=== PATIENT | male | born 1985 | race Caucasian/White ===

== ENCOUNTER 2019-09-10 14:50 | Outpatient (CLI) | payer BC, SELFPAY ==
--- NOTE | ~2019-09-10 | XR_ITS ---
XR knee RT 3V DATE: 09/10/2019 15:15 INDICATION: Right knee pain anteriorly. TECHNIQUE: 3 views COMPARISON: None FINDINGS: No fracture or dislocation or joint effusion. Joint spaces are preserved. No radiopaque int ra-articular loose body or chondrocalcinosis. IMPRESSION: Negative Reviewed, dictated and finalized at location A. IMPRESSION: Negative
--- NOTE | ~2019-09-10 | XR_ITS ---
XR knee LT 3V DATE: 09/10/2019 15:16 INDICATION: Anterior knee pain. No known injury. TECHNIQUE: 3 views COMPARISON: None FINDINGS: No fracture or dislocation or joint effusion, periosteal reaction or bone destruction, radi opaque intra-articular loose body or chondrocalcinosis. Joint spaces are well preserved. IMPRESSION: Negative Reviewed, dictated and finalized at location A. IMPRESSION: Negative
== END 2019-09-10 14:51 | disposition home or self-care (01) ==
PROVIDERS: PCP Family Medicine; Visit Provider Physician Assistant
DX: M25.561 Pain in right knee (principal); M25.562 Pain in left knee
CPT/HCPCS: 73562

== ENCOUNTER 2020-03-13 07:01 | Outpatient (CLI) | payer BC, SELFPAY ==
--- NOTE | 2020-03-13 10:36 | P.NEURO_ITS ---
Neurology EEG Report General Information Date of Study: 03/13/20 TEST EEG DIAGNOSIS seizures CONDITION OF RECORDING awake drowsy and sleep EEG NUMBER [id number] CLINICAL HISTORY patient reported he was diagnosed with absence seizure about 16 years ago. Has been of seizure medication for the last several years. Has noted a couple of episodes of losing time in the last couple of months. EEG DESCRIPTION Basic resting occipital frequency consists of small amount of poorly organized low voltage 11 to 13 hertz per second alpha admixed with large amount of low- voltage 15 to 21 hertz per second beta. During drowsiness low-voltage beta activity seen diffusely. Bilateral symmetrical sleep activity seen during sleep. Multiple EKG artifacts are noted throughout the tracing. Non paroxysmal. Nonfocal. Nonlateralizing. IMPRESSION No significant abnormalities noted
== END 2020-03-13 07:02 | disposition home or self-care (01) ==
PROVIDERS: PCP Family Medicine; Visit Provider Psychiatry & Neurology Neurology
DX: G40.909 Epilepsy, unspecified, not intractable, without status epilepticus (principal)
CPT/HCPCS: 95819

== ENCOUNTER 2022-01-10 01:32 | Day surgery (SDC) | payer BC, MEDICARE, SELFPAY ==
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
[2022-01-08 10:11] VITALS: BMI 20.3
--- NOTE | 2022-01-08 10:17 | PC.NURSE ---
Report to the Outpatient Waiting Room, entrance under the green pavilion located off [facility], at time 0930 on date 01/10/22. Planned Procedure Time: 1130. Time changes happen often and if your time is changed the preop area will call you the afternoon before. - You and your visitor will be asked to self-screen and do not enter if you have any COVID symptoms. - We encourage only one visitor and NO visitors under age 16 are allowed at this time. Your visitor will receive communication by the phone number that is given day of service. - The patient visitor is requested to social distance or may leave the building when not with patient due to restrictions. - A mask is OPTIONAL within the hospital. Patients may have clear liquids (water, carbonated beverages, clear teas, apple juice) until 3 hours prior to surgery with a maximum of 20 ounces. - No food from midnight until time of surgery Take the following medications with a SIP of water the morning of surgery: WELLBUTRIN Medications to discontinue per physician: VITAMINS/SUPPLEMENTS Date to take last dose: NO MORE UNTIL AFTER SURGERY Please no make-up, nail bots[place], hairspray, perfume, deodorant, or body powder the day of surgery. No jewelry (including any body piercings) or valuables the day of surgery, leave them at home. Please take a shower or bath the night before, or the morning of, surgery with an antibacterial soap. Wear comfortable, loose fitting clothing. - Jewelry must be removed prior to entering the operating room. Rings and piercings that are not removed may be cut off. - The hospital will not accept responsibility for valuables. - Please leave all valuables, including medications, at home the day of surgery. If you are going home after surgery, a licensed coach driver must drive you home. - NO public transportation without another adult. - We recommend that an adult stay with you for 24 hours following discharge. - We also recommend that you do not drive, make important decision, drink alcoholic beverages, or take any drugs that were not prescribed by your health care provider for at least 24 hours after your discharge time. Follow any additional instructions given to you from your surgeon. If you or anyone in your household have experienced Covid symptoms in the past week, please notify your surgeon or the nurse liaison at the phone number below for possible testing. Telephone instructions given to PT Sabrina SHAHID and asked if any additional questions and then verbalized understanding. Patient advised to call surgeon office or pre surgery nurse liaison [phone] if any additional questions.
--- NOTE | 2022-01-10 07:26 | WPDHPUPDATE1 ---
History and Physical Update Update Date/Time: 01/10/22 07:26 History and Physical has been reviewed, including an updated exam of the patient. There are NO changes in the patient's condition. Risks, benefits, and alternatives have been discussed and questions answered. Patient agrees to proceed with procedure.
[2022-01-10 10:14] VITALS: BP 122/87; PULSE 75; RESP 14; TEMP 36.1; O2SAT 98
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
[2022-01-10] MEDS: LACTATED RINGERS 1,000 ML 30 ML IV CONT (10:25)
[2022-01-10] MEDS: ceFAZolin 2 GM/D5W 50 ML 2 GM/50 ML BAG IVPB (10:26)
[2022-01-10] MEDS: LIDOCAINE HCL 2% GEL UROJET 10 ML PKG MUCOUS MEM (11:01)
[2022-01-10 11:07] VITALS: BP 102/64; PULSE 77; RESP 12; O2SAT 94
[2022-01-10 11:25] VITALS: BP 115/89; PULSE 77; RESP 12
--- NOTE | 2022-01-10 11:32 | W.PM.PROC2 ---
Procedure Note - Detailed Date of Procedure 01/10/22 Pre-op Diagnosis Urethral stricture Post-op Diagnosis Same Procedure Performed Cysto. urethral dilatation Surgeon Oz Quintanilla MD Description of Procedure The patient was brought to the operative suite where he was prepped and draped in a routine sterile fashion while in a dorsal lithotomy position after the uneventful induction of a general LMA anesthetic. Cystoscopy was undertaken with a 16F flexible cystoscope. This patient has a very tight bulbous urethral stricture calibrated at approximately 8 F.. The prostatic urethral estimated length was 1.0cm. The bladder itself was endoscopically normal without foreign body or neoplasm. The bladder mucosa was without hyperemia. There was a single orthotopic ureteral orifice bilaterally with clear efflux of urine. Using the implants dilators over a 0.035 in glidewire I dilated the urethra from 8F -> 22F. The bladder was emptied and the patient was taken to the recovery room in good condition Drains No Pathology None sent Complications No immediate complications Condition Stable
[2022-01-10 11:55] VITALS: BP 103/84; PULSE 73; RESP 16
[2022-01-10 12:25] VITALS: BP 119/91; PULSE 75; RESP 16
--- NOTE | 2022-01-10 12:42 | SUR.PHASEII ---
per dr suarez restart asa and vit meds on friday01/13/22
== END 2022-01-10 12:42 | disposition home or self-care (01) ==
PROVIDERS: PCP Family Medicine; Visit Provider Urology
PROC: 0T7D8ZZ Dilation of Urethra, Via Natural or Artificial Opening Endoscopic (ICD-10-PCS; CPT 52281; principal; 2022-01-10 11:30)
DX: N35.912 Unspecified bulbous urethral stricture, male (principal); K21.9 Gastro-esophageal reflux disease without esophagitis; F31.9 Bipolar disorder, unspecified; Z79.82 Long term (current) use of aspirin; F12.90 Cannabis use, unspecified, uncomplicated
CPT/HCPCS: 52281; A9270; C1726; C1769; J0690; J1100; J2405; J2704; J3010; J7120

== ENCOUNTER 2022-07-26 16:36 | Outpatient (CLI) | payer MEDICARE, SELFPAY ==
[2022-07-26 17:44] LABS: SARS-CoV-2 RNA PCR Positive (Negative)
== END 2022-07-26 16:37 | disposition home or self-care (01) ==
PROVIDERS: PCP Family Medicine; Visit Provider Physician Assistant
DX: U07.1 COVID-19 (principal)
CPT/HCPCS: 87635; U0005

== ENCOUNTER 2023-06-27 19:08 | Emergency (ER) | payer BC, MEDICARE, SELFPAY ==
--- NOTE | ~2023-06-27 | XR_ITS ---
XR knee LT 3V DATE: 06/27/2023 20:45 INDICATION: Fall. Left knee pain. TECHNIQUE: 3 views COMPARISON: None FINDINGS: No fracture or dislocation or joint effusion. Joint spaces are preserved. No radiopaque int ra-articular loose body or chondral calcinosis. No periosteal reaction or bone destruction. IMPRESSION: Negative Reviewed, dictated and finalized at location A. IMPRESSION: Negative
--- NOTE | ~2023-06-27 | XR_ITS ---
XR elbow LT min 3V DATE: 06/27/2023 20:46 INDICATION: Fall. Left elbow pain, laceration TECHNIQUE: 3 views COMPARISON: None FINDINGS: There is elevation of the anterior and posterior fat pads. No apparent fracture or dislocat ion is detected, but the joint effusions raise concern for the possibility of radiographically occult fracture. Additional radiographic views and short-term radiographic follow-up should be considered. IMPRESSION: Elbow joint effusion; no detectable fracture or any dislocation is noted. Additional radiographic views and possibly short-term follow-up radiographs should be considered to r ule out radiographically occult fracture Reviewed, dictated and finalized at location A. IMPRESSION: Elbow joint effusion; no detectable fracture or any dislocation is noted. Additional radiographic views and possibly short-term follow-up radiographs alie uld be considered to rule out radiographically occult fracture
--- NOTE | ~2023-06-27 | XR_ITS ---
[id number]_CR DATE: 06/27/2023 20:45 INDICATION: Fall. Left rib pain. TECHNIQUE: PA chest. 4 views of the left ribs. COMPARISON: None FINDINGS: No left rib fracture is detected. Normal heart size. No hilar or mediastinal enlargement. No pulmonary infiltrate or consolidation, ple ural effusion or pulmonary vascular congestion or pneumothorax. IMPRESSION: Negative Reviewed, dictated and finalized at Location A. Reviewed, dictated and finalized at location A. IMPRESSION: Negative
--- NOTE | ~2023-06-27 | CT_ITS ---
EXAMINATION: CT facial bones wo con DATE: 06/27/2023 20:29 INDICATION: Fall, facial injury. Laceration above left eyebrow and left periorbital area TECHNIQUE: Computed tomography (CT) of the facial bones and maxillofacial region was performed withou t intravenous contrast. Automated exposure control and iterative reconstruction technique were employ ed. Exam dose: 305.72 mGy-cm total exam DLP. COMPARISON: None. FINDINGS: Soft tissue swelling in the left lateral periorbital and zygomatic and maxillary region. The frontozygomatic sutures are intact. The orbital rims are intact. There is a virtually nondisplaced fracture of the lateral wall of the left orbit. There is minimally depressed fracture of the anterior wall and lateral wall of the left maxillary antrum. There is a flu id level in the left maxillary sinus. The pterygoid plates, alveolar ridge and mandible are intact. Normal alignment at the temporomandibul ar joints. The mastoid air cells are well-developed and aerated bilaterally. There is a 2.6 cm polyp or mucous retention cyst of the right maxillary sinus. IMPRESSION: Minimally displaced anterior and lateral wall fractures of the left maxillary sinus and virtually nondisplaced fracture of the lateral wall of the left orbit Soft tissue swelling of the left periorbital, zygomatic and maxillary region and fluid level in the l eft maxillary sinus Prominent polyp or mucous retention cyst of the floor of the right maxillary sinus Reviewed, dictated and finalized at Location A. Reviewed, dictated and finalized at location A. IMPRESSION: Minimally displaced anterior and lateral wall fractures of the lef t maxillary sinus and virtually nondisplaced fracture of the lateral wall of th e left orbit Soft tissue swelling of the left periorbital, zygomatic and maxillary region an d fluid level in the left maxillary sinus Prominent polyp or mucous retention cyst of the floor of the right maxillary si nus
[2023-06-27 19:09] VITALS: BP 113/75; PULSE 99; RESP 22; TEMP 36.4; O2SAT 99
[2023-06-27 19:30] VITALS: BP 121/82; PULSE 83; RESP 16; O2SAT 96
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
[2023-06-27] MEDS: IBUPROFEN 400 MG TABLET 800 MG PO (21:27)
[2023-06-27] MEDS: HYDROcodone/acetaminophen (*CRX) 5-325 MG TABLET 1 TAB PO (21:30)
== END 2023-06-27 22:07 | disposition home or self-care (01) ==
PROVIDERS: Emergency Provider Physician Assistant; PCP Family Medicine
DX: S02.40DA Maxillary fracture, left side, initial encounter for closed fracture (principal); S02.842A Fracture of lateral orbital wall, left side, initial encounter for closed fracture; S01.112A Laceration without foreign body of left eyelid and periocular area, initial encounter; K21.9 Gastro-esophageal reflux disease without esophagitis; F31.9 Bipolar disorder, unspecified; F64.0 Transsexualism; Z79.82 Long term (current) use of aspirin; V28.41XA Electric (assisted) bicycle driver injured in noncollision transport accident in traffic accident, initial encounter
CPT/HCPCS: 12011; 70486; 71101; 73080; 73562; 99284; A4565; A9270

== ENCOUNTER 2023-07-02 16:30 | Outpatient (CLI) | payer BC, MEDICARE, SELFPAY ==
--- NOTE | ~2023-07-02 | XR_ITS ---
EXAMINATION: XR elbow LT min 3V DATE: 07/02/2023 16:53 INDICATION: Left elbow pain. Trauma. TECHNIQUE: 4 views of left elbow were obtained. COMPARISON: Left elbow radiographs 06/27/23 FINDINGS: Bone alignment is normal. No fracture. Joint spaces are normal. There is a large elbow join t effusion. IMPRESSION: 1. Large elbow joint effusion again seen. Reviewed, dictated and finalized at location E.
== END 2023-07-02 16:31 | disposition home or self-care (01) ==
LOC: ANHIMG 16:33
PROVIDERS: PCP Family Medicine; Visit Provider Physician Assistant
DX: M25.422 Effusion, left elbow (principal)
CPT/HCPCS: 73080

== ENCOUNTER 2023-08-05 13:46 | Outpatient (CLI) | payer BC, MEDICARE, SELFPAY ==
--- NOTE | ~2023-08-05 | XR_ITS ---
XR thoracic spine 3V DATE: 08/05/2023 14:21 INDICATION: Thoracic back pain TECHNIQUE: AP, lateral, swimmer views COMPARISON: None FINDINGS: Slight thoracic dextroscoliosis. No fracture or dislocation or bone destruction. The thorac ic pedicles are intact. No paraspinal soft tissue thickening. IMPRESSION: Slight thoracic dextroscoliosis; otherwise negative Reviewed, dictated and finalized at location B.
--- NOTE | ~2023-08-05 | XR_ITS ---
XR lumbar spine min 4V DATE: 08/05/2023 14:21 INDICATION: Lumbar back pain TECHNIQUE: AP, lateral, cone-down lateral lumbosacral and bilateral oblique views COMPARISON: None FINDINGS: There is slight lumbar levoscoliosis. The lumbar pedicles are intact. No fracture or bone destruction, spondylolysis or spondylolisthesis. Lumbar level sacral interspaces are well preserved. The sacroiliac joints are intact. IMPRESSION: Slight lumbar levoscoliosis; otherwise negative Reviewed, dictated and finalized at location B.
== END 2023-08-05 13:47 ==
PROVIDERS: PCP Family Medicine; Visit Provider Physician Assistant
DX: M54.9 Dorsalgia, unspecified (principal); M54.50 Low back pain, unspecified
CPT/HCPCS: 72072; 72110

== ENCOUNTER 2024-01-08 16:16 | Emergency (ER) | payer MEDICARE, BC, SELFPAY ==
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
[2024-01-08 16:22] VITALS: BP 115/82; PULSE 94; RESP 16; TEMP 36.4; O2SAT 99
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
== END 2024-01-08 18:00 | disposition home or self-care (01) ==
LOC: ANHED 17:38
PROVIDERS: Emergency Provider Physician Assistant; PCP Family Medicine
DX: S42.031A Displaced fracture of lateral end of right clavicle, initial encounter for closed fracture (principal); S43.141A Inferior dislocation of right acromioclavicular joint, initial encounter; K21.9 Gastro-esophageal reflux disease without esophagitis; F31.9 Bipolar disorder, unspecified; F64.0 Transsexualism; Z79.899 Other long term (current) drug therapy; Z79.82 Long term (current) use of aspirin; V18.4XXA Pedal cycle driver injured in noncollision transport accident in traffic accident, initial encounter; Y93.55 Activity, bike riding
CPT/HCPCS: 73030; 99284; A4565

== ENCOUNTER 2024-01-23 01:29 | Day surgery (SDC) | payer MEDICARE, BC, SELFPAY ==
[2024-01-21 14:28] VITALS: BMI 21.6
--- NOTE | 2024-01-21 14:30 | PC.NURSE ---
Report to the Outpatient Waiting Room, entrance under the green pavilion located off [facility], at time _1000_ on date _[id number]_. Planned Procedure Time: _1200_.? Time changes happen often and if your time is changed the preop area will call you the afternoon before. - You and your visitor will be asked to self-screen and do not enter if you have any COVID symptoms. Please call surgeon if you need to reschedule. - A mask is optional within the hospital at this time. Patients may have clear liquids (water, carbonated beverages, clear teas, apple juice) until 3 hours prior to surgery with a maximum of 20 ounces. - No food from midnight until time of surgery and no smoking Take only the following medications with a SIP of water on the morning of surgery: __Bupropion and Vilazodone__ DO NOT STOP ANY OF YOUR OTHER PRESCRIPTION MEDICATIONS PRIOR TO SURGERY EXCEPT THE FOLLOWING Medications to discontinue per physician ___All vitamins, supplements, and Meloxicam___ Date to take last dose__Stop now.___ Please no make-up, nail south african, hairspray, perfume, deodorant, or body powder the day of surgery.? No jewelry (including any body piercings) or valuables the day of surgery, leave them at home.? Please take a shower or bath the night before, or the morning of, surgery with an antibacterial soap.? Wear comfortable, loose fitting clothing.? - Jewelry must be removed prior to entering the operating room.? Rings and piercings that are not removed may be cut off. - The hospital will not accept responsibility for valuables.? - Please leave all valuables, including medications, at home the day of surgery. If you are going home after surgery, a licensed auto [place]ulaway driver must drive you home.? - NO public transportation without another adult if you receive anesthesia. - We recommend that an adult stay with you for 24 hours following discharge. - We also recommend that you do not drive, make important decision, drink alcoholic beverages, or take any drugs that were not prescribed by your health care provider for at least 24 hours after your discharge time. Follow any additional instructions given to you from your surgeon. Telephone instructions given to __Nick__and asked if any additional questions and then verbalized understanding. Patient advised to call surgeon office or pre surgery nurse liaison [phone] if any additional questions.
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
[2024-01-23] VITALS (10 sets, daily range): BP systolic 112–146; BP diastolic 75–87; PULSE 83–102; RESP 10–18; TEMP 36.6–36.9; O2SAT 97–100; BMI 21.5
--- NOTE | ~2024-01-23 | XR_ITS ---
INTRAOPERATIVE FLUOROSCOPY: CLINICAL HISTORY: 38 years old Male; ORIF RIGHT CLAVICLE PROCEDURE COMMENTS: Limited intraoperative fluoroscopy of the right clavicle was performed. CUMULATIVE DOSE: 0.33 mGy FLUOROSCOPY TIME: 3.7 seconds FINDINGS/IMPRESSION: Please refer to operative note for further details. Reviewed, dictated and finalized at location A. VISION PRODUCTION CLERK
[2024-01-23] MEDS: KETOROLAC 15 MG/ML VIAL (*BKC) IV PUSH (07:35)
[2024-01-23] MEDS: LACTATED RINGERS 1,000 ML 30 ML IV CONT (07:35)
[2024-01-23] MEDS: ACETAMINOPHEN 500 MG TABLET 1000 MG PO (07:35)
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
--- NOTE | 2024-01-23 08:10 | WPDHPUPDATE1 ---
History and Physical Update Update Date/Time: 01/23/24 08:10 History and Physical has been reviewed, including an updated exam of the patient. There are NO changes in the patient's condition. Risks, benefits, and alternatives have been discussed and questions answered. Patient agrees to proceed with procedure.
[2024-01-23] MEDS: ceFAZolin 2 GM/D5W 50 ML 2 GM/50 ML BAG IVPB (08:53)
[2024-01-23] MEDS: BUPIVACAINE/EPINEPHRINE 0.5% 50 ML VIAL INFILTRATE (09:36)
[2024-01-23] MEDS: oxyCODONE HCL (*CRX) 5 MG TAB IR PO (12:25)
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
== END 2024-01-23 13:36 | disposition home or self-care (01) ==
PROVIDERS: PCP Family Medicine; Visit Provider Orthopaedic Surgery
PROC: (CPT 23515; principal; 2024-01-23 09:00)
DX: S42.031A Displaced fracture of lateral end of right clavicle, initial encounter for closed fracture (principal); S43.101A Unspecified dislocation of right acromioclavicular joint, initial encounter; W19.XXXA Unspecified fall, initial encounter; F31.9 Bipolar disorder, unspecified; F12.90 Cannabis use, unspecified, uncomplicated; Z79.82 Long term (current) use of aspirin
CPT/HCPCS: 23515; 99199; A4565; A9270; J0690; J1100; J1885; J2250; J2270; J2405; J2704; J7120

== ENCOUNTER 2024-05-04 11:00 | Outpatient (RCR) | payer MEDICARE, BC, SELFPAY ==
--- NOTE | 2024-04-02 13:02 | PCPTNOTE ---
pt called and canceled PT eval appt, at the time of the appointment, due to not having a a ride.
--- NOTE | 2024-04-05 11:29 | OPREHPOC ---
Outpatient Therapy Plan of Care This is a Multidisciplinary Plan of Care that may contain components documented by all disciplines (PT, OT, and ST.) PT Problem 1 PT Problem #1 Knowledge Deficit PT Goal 1 Goal / Goal Update Castro with HEP Target Visit 4 PT Goal 2 Goal / Goal Update Report no pain greater than 2/10 for 2 consecutive weeks Target Visit 8 PT Problem 2 PT Problem #2 Impaired Range of Motion PT Goal 1 Goal / Goal Update Achieve 170+ degrees of shoulder flexion to improve functional reach activity Target Visit 8 PT Problem 3 PT Problem #3 Impaired Strength PT Goal 1 Goal / Goal Update 1. Improve R shoulder flexion strength to 5/5 to improve object lifting to shelves 2. Improve R shoulder external rotation strength to 5/5 to improve stability of shoulder girdle Target Visit 8
--- NOTE | 2024-04-05 11:29 | PTOPEVAL1 ---
Assessment and note entered by Chase Peterson, PT Evaluation Information Assessment Status Evaluation Diagnosis FR=racture of right clavicle ICD-10 Condition Codes (PT) Pain in right shoulder M25.511 Onset 01/23/24 Subjective Information Reports that he is having a lot of soreness and having trouble reaching overhead. Trouble with putting weight into the arm and lifting objects. He has to be able to move around 40# salt and water containers. He cannot do more that 20# right now. Pain is all in the shoulder. Denies radicular symptoms. Has to lay on left side as there is pain with R side lying. Reports that he was initially supposed to start therapy in February but did not get the message and it was delayed. He is right handed. Reported Pain Level Pain Score 1: Self Report Assessment PT Clinical Summary Patient showing weakness in shoulder girdle and loss of ROM predominantly into shoulder flexion. Patient has moderate apprehension and will benefit form skilled therapy to address shoulder functional deficits to restore lifting and stabilization activity. Plan of Care Interventions Electrical Stimulation,Hot Pack/Cold Pack,Manual Therapy,Neuro Re-education,Therapeutic Activities, Therapeutic Exercise PT Services Indicated Yes Treatment Frequency and 1-2x/week for 8 visits Duration These treatments will address the objective and functional deficits as defined above. The patient will be advanced safely and appropriately in order for the patient to progress towards his/her prior level of function. Additional exercises will be introduced and as well as a comprehensive home exercise program upon discharge, if needed, ?to ensure carryover of functional gains achieved in the clinic. This treatment plan has been reviewed and agreement upon by the patient.
--- NOTE | 2024-04-14 13:59 | PCPTNOTE ---
Pt NC NS todays visit.
--- NOTE | 2024-04-28 14:38 | PCPTNOTE ---
Called and canceled today due to weather. Note canceled right at scheduled appt time. PERCYS
--- NOTE | 2024-05-04 11:56 | PTOPDC ---
Assessment and note entered by Nadia Jimenez, PT Assessment Status Discharge Diagnosis fracture of right clavicle ICD-10 Condition Codes (PT) Pain in right shoulder M25.511 Onset 01/23/24 Subjective Information therapy has helped, have more flexibility of shoulder; R arm has good function now; am back to doing everything- lifting all that I usually do about 40# bags of softener salt and doing OK; have been doing all the exercises at home. Reported Pain Level Pain Score Self Report Additional Pain Score Comments pain range in the past week: 1-4/10; little discomfort in the skin where surgery was; increase pain: lifting and carrying 40# softener salt; lie on R side with sleeping decrease pain: rest take meloxicam PRN for knees, back or shoulder kinesiotape applied strip over shoulder; educated pt on how to place tape, to monitor skin and remove tape by wetting it; Assessment PT Clinical Summary Nick has received 7 PT sessions. One appointment was no show and one called/canceled. With today's assessment: active R shoulder flexion, abduction, IR and ER motions are WNL and no pain increase. Strength: R UE: standing x 10 reps: - shoulder flexion to ~ 140' with 3# hand wt - shoulder abduction to ~ 90' with 3# hand wt - shoulder ER with elbow at side, 3# hand wt - elbow flexion/extension with 5# hand wt -------- bilateral UE box lift, maximum weight to 20# from floor/waist height- stop due to knee and back pain reports shoulder was OK. The goals were achieved. Nick reports doing all of the usual home lifting and activity. Education completed for HEP, with gradual increase in strengthening, monitoring and not increase shoulder pain. Discharge PT. Nick is to continue with the HEP and activity as tolerated. Plan of Care PT Services Indicated No
== END 2024-05-04 15:19 | disposition home or self-care (01) ==
LOC: ANHPT 11:00
PROVIDERS: PCP Family Medicine; Visit Provider Orthopaedic Surgery
DX: S42.031D Displaced fracture of lateral end of right clavicle, subsequent encounter for fracture with routine healing (principal)
CPT/HCPCS: 97110; 97140; 97161; 97530